=== PATIENT | female | born 1950 | race Caucasian/White ===

== ENCOUNTER → 2016-05-28 | Outpatient (CLI) | payer MEDICARE, OTHER ==
[~2016-05-28] MED LIST: "\\\"PREP SPRAY\\\"-TIN4 OZ"; ACETAMINOPHEN1 EACH PO; ADVIL200 MG PO; ASCORBIC ACID500 MG PO; ASPIRIN LO-DOSE81 MG PO; B COMPLETE1 EACH PO; CALCIUM WITH V1 EAC2 PO; CELEBREX200 MG PO; COLACE100 MG; FISH OIL 1,0001 EAC3; FLEXERIL10 MG PO; FLONASE 50 MCG/16 GM NOSE; MIRALAX PO527 GM/BOT PO; MULTIVITAMINS1 EAC1 PO; NUCYNTA50 MG PO; OCUVITE EYE +1 EACH PO; TYLENOL EXTRA500 MG PO; XARELTO10 MG PO; ZINC CHELATED50 MG PO; ZOCOR20 MG PO; ZYRTEC10 MG PO
== END | disposition disaster alternative care site (69) ==
LOC: GBCOE 12:28
DX: Z12.31 Encounter for screening mammogram for malignant neoplasm of breast (principal); Z98.890 Other specified postprocedural states
CPT/HCPCS: G0202